=== PATIENT | male | born 1995 | race Caucasian/White ===

== ENCOUNTER 2019-10-01 16:38 | Emergency (ER) | payer SELFPAY ==
--- NOTE | 2019-10-01 17:17 | EDM.PDOC ---
ED HPI GENERAL MEDICAL PROBLEM - General Chief Complaint: ENT Problem Stated Complaint: EAR RINGING AND SOUND IS MUFFLED Time Seen by Provider: 10/01/19 16:55 Source of Information: Reports: Patient History Limitations: Reports: No Limitations - History of Present Illness INITIAL COMMENTS - FREE TEXT/NARRATIVE: This unfortunate 24-year-old male presents in respiratory a complaint of decreased hearing to right ear. Patient reports symptoms started 2 days ago and progressively worsened since no fever no chills no nausea no vomiting no shortness of breath. Left Ear Pain Score (Numeric/FACES): 4 - Related Data Allergies Allergy/AdvReac Type Severity Reaction Status Date / Time No Known Allergies Allergy Verified 10/01/19 17:01 Home Meds: Home Meds . [No Known Home Meds] 10/01/19 [History] Past Medical History - Past Health History Medical/Surgical History: Denies Medical/Surgical History Social & Family History - Tobacco Use Smoking Status *Q: Current Every Day Smoker Years of Tobacco use: 4 Packs/Tins Daily: 0.1 ED ROS ENT - Review of Systems Review Of Systems: See Below Constitutional: Denies: Fever, Chills HEENT: Reports: Hearing Loss. Denies: Ear Discharge ED EXAM, ENT - Physical Exam Exam: See Below Exam Limited By: No Limitations General Appearance: Alert, WD/WN, Mild Distress Ears: TM Obscured by Cerumen (Left ear) Nose: Normal Inspection, Normal Mucousa, No Blood Head: Atraumatic, Normocephalic Respiratory/Chest: No Respiratory Distress, Lungs Clear, Normal Breath Sounds, No Accessory Muscle Use, Chest Non-Tender Cardiovascular: Normal Peripheral Pulses GI/Abdominal: Normal Bowel Sounds, Soft, Non-Tender, No Organomegaly, No Distention, No Abnormal Bruit, No Mass Extremities: Normal Inspection, Normal Range of Motion, Non-Tender, No Pedal Edema, Normal Capillary Refill Skin: Warm, Dry, No Rash ED ENT PROCEDURES - Additional/Other Procedure(s) Other (Free Text) Procedure(s): Irrigation left ear, irrigated with warm water large amount of cerumen removed post evaluation TM normal, canal clear Course - Vital Signs Last Recorded V/S: Last Vital Signs Temp 98.7 F 10/01/19 16:57 Pulse 75 10/01/19 16:57 Resp 16 10/01/19 16:57 BP 126/70 10/01/19 16:57 Pulse Ox 96 10/01/19 16:57 Departure - Departure Time of Disposition: 17:17 Disposition: Home, Self-Care 01 Clinical Impression: Impacted cerumen of left ear - Discharge Information Referrals: PCP,None [Primary Care Provider] - Additional Instructions: Home, rest, return as needed Sepsis Event Note - Evaluation Sepsis Screening Result: No Definite Risk - Focused Exam Vital Signs: Vital Signs Temp Pulse Resp BP Pulse Ox 10/01/19 16:57 98.7 F 75 16 126/70 96 Date Exam was Performed: 10/01/19 Time Exam was Performed: 17:15
== END 2019-10-01 17:39 | disposition home or self-care (01) ==
LOC: JD.ED 16:38
DX: H61.22 Impacted cerumen, left ear (principal); F17.210 Nicotine dependence, cigarettes, uncomplicated
CPT/HCPCS: 69209; 99282; 99283

== ENCOUNTER 2020-03-19 19:51 | Emergency (ER) | payer MEDICAID ==
--- NOTE | 2020-03-19 20:30 | EDM.PDOC ---
ED HPI GENERAL MEDICAL PROBLEM - General Chief Complaint: Lower Extremity Injury/Pain Stated Complaint: ANKLE INJURY Time Seen by Provider: 03/19/20 20:04 Source of Information: Reports: Patient, Family () History Limitations: Reports: No Limitations - History of Present Illness INITIAL COMMENTS - FREE TEXT/NARRATIVE: Mr. Britton is a very pleasant 24-year-old man with no chronic medical problems and no past surgical history, who now presents to the ED stating that he has had right heel pain - he points to the sole of his heel -for the past 2 to 3 days, after jumping on a trampoline and running. No other known injury. He denies pain elsewhere to his foot. No prior similar symptoms. He states that he took some Tylenol and ibuprofen. The patient states that his pain MAY be worse when he first gets up in the morning, but his tells me that his pain is constant all day. Other than his heel pain, the patient denies recent fever, chills, sore throat, ear pain, nasal or sinus congestion, cough, dyspnea, chest pain, palpitations, nausea, vomiting, constipation, diarrhea, abdominal pain, urinary symptoms, recent weight gain or weight loss, recent bloody bowel movements or black bowel movements, recent joint aches, headaches, or rashes. The patient's PCP is Michelle Nowak NP. Right Foot Pain Score (Numeric/FACES): 8 - Related Data Allergies Allergy/AdvReac Type Severity Reaction Status Date / Time No Known Allergies Allergy Verified 03/19/20 20:03 Home Meds: Home Meds Acetaminophen [Tylenol] 650 mg PO ONCALL PRN 03/19/20 [History] Past Medical History - Past Health History Medical/Surgical History: Denies Medical/Surgical History Social & Family History - Tobacco Use Smoking Status *Q: Current Every Day Smoker Tobacco Use Within Last Twelve Months: Smokeless Tobacco (Occasionally chews tobacco) Years of Tobacco use: 4 Packs/Tins Daily: 0.3 - Alcohol Use Alcohol Use History: Yes Alcohol Use Frequency: Socially - Recreational Drug Use Recreational Drug Use: Yes Drug Use in Last 12 Months: No Recreational Drug Type: Reports: Marijuana/Hashish (last smoked around 2013) - Living Situation & Occupation Living situation: Reports: , with Spouse, with Family (Daughter) Occupation: Unemployed Review of Systems - Review of Systems Review Of Systems: Comprehensive ROS is negative, except as noted in HPI. ED EXAM, GENERAL - Physical Exam Exam: See Below Exam Limited By: No Limitations General Appearance: Alert, WD/WN, No Apparent Distress Extremities: Other (No visible abnormality to the right ankle or foot, such as swelling, erythema, ecchymosis, or abrasion. There is significant tenderness to palpation of the sole of the heel, but no pain is induced with compression of the calcaneus laterally and medially. No significant pain to the remainder of the sole of the foot. Neurovascular status of the right lower extremity is intact.) Course - Vital Signs Last Recorded V/S: Last Vital Signs Temp 36.5 C 03/19/20 20:03 Pulse 102 H 03/19/20 20:03 Resp 18 03/19/20 20:03 BP 101/61 03/19/20 20:03 Pulse Ox 98 03/19/20 20:03 - Orders/Labs/Meds Orders: Active Orders 24 hr Category Date Time Status Foot Comp Min 3V Rt [CR] Stat Exams 03/19/20 20:23 Taken - Re-Assessments/Exams Free Text/Narrative Re-Assessment/Exam: 03/19/20 20:24 As above, the patient has pain to the sole of his right heel, and on examination , there is point tenderness, with no significant tenderness elsewhere in the foot, and no notable abnormalities. His presentation is most concerning for plantar fasciitis, however, because he reports jumping on a trampoline and running, I have ordered x-rays of the right foot to rule out a fracture. 03/19/20 20:39 4-view radiographs of the right foot appear to be normal. No fractures or dislocations identified. Formal read per the Radiologist pending. 03/19/20 21:02 X-rays results and the presumptive diagnosis of plantar fasciitis discussed with the patient and his . I am recommending that he wear is soft and supportive shoe as he can find, and in the meantime he may take over-the- counter ibuprofen. I would like him to follow-up with the [facility] Assistant Dr. Gan, who, if he agrees with the diagnosis, can fit the patient for orthotics. Departure - Departure Time of Disposition: 21:04 Disposition: Home, Self-Care 01 Condition: Good Clinical Impression: Plantar fasciitis of right foot - Discharge Information *PRESCRIPTION DRUG MONITORING PROGRAM REVIEWED*: Not Applicable *COPY OF PRESCRIPTION DRUG MONITORING REPORT IN PATIENT [place]: Not Applicable Instructions: Plantar Fasciitis Referrals: Michelle Nowak NP [Primary Care Provider] - Juan Gan II, DPM [Physician] - Forms: ED Department Discharge Additional Instructions: You were seen in the emergency room for 2 to 3 days of right heel pain. Work-up in the ER included x-rays of your right foot, which returned normal. No broken bones or dislocations were found. Based on your history, physical exam, and ER x-rays, your heel pain is most likely due to plantar fasciitis. We recommend that you wear soft arch-supporting athletic shoes whenever walking. Avoid walking barefoot or in slippers, sandals, or flip-flops. Take [id number] ibuprofen, 3 tablets (600 mg) every 8 hours, with food, as needed for discomfort. Follow-up with the [facility] Assistant Dr. Juan Gan at the next available appointment. If any other problems, please do not hesitate to return to the ER. Sepsis Event Note - Evaluation Sepsis Screening Result: No Definite Risk - Focused Exam Vital Signs: Vital Signs Temp Pulse Resp BP Pulse Ox 03/19/20 20:03 36.5 C 102 H 18 101/61 98 Date Exam was Performed: 03/20/20 Time Exam was Performed: 00:00 - My Orders Last 24 Hours: My Active Orders 03/19/20 20:23 Foot Comp Min 3V Rt [CR] Stat - Assessment/Plan Last 24 Hours: My Active Orders 03/19/20 20:23 Foot Comp Min 3V Rt [CR] Stat
--- NOTE | 2020-03-20 08:04 | CR ---
Right foot: 4 views of the right foot were obtained. Joint spaces are preserved. No acute fracture, dislocation or other bony abnormality is appreciated. Impression: 1. No abnormality is identified on right foot exam. Diagnostic code #1 This report was dictated in MDT
== END 2020-03-19 21:13 | disposition home or self-care (01) ==
LOC: JD.ED 19:51
DX: M72.2 Plantar fascial fibromatosis (principal); F17.210 Nicotine dependence, cigarettes, uncomplicated
CPT/HCPCS: 73630-26-RT; 73630-RT; 99282; 99283-25

== ENCOUNTER 2021-12-27 14:02 | Emergency (ER) | payer MEDICAID ==
[2021-12-27] MEDS ORDERED: Sodium Chloride 0.9% 10 ML Syringe FLUSH PRN (14:32)
[2021-12-27] MEDS ORDERED: Dexamethasone 10 MG/ML SDV IVPUSH ONE ×2 (14:32→16:04)
[2021-12-27] MEDS ORDERED: Ketorolac 30 MG/ML SDV IVPUSH ONE (14:32)
[2021-12-27] MEDS ORDERED: Ondansetron 4 MG/2 ML SDV IVPUSH ONE (14:35)
[2021-12-27] MEDS ORDERED: Sodium Chloride 0.9% 1,000 ML IV ONE (14:43)
[2021-12-27 15:11] LABS: CORONAVIRUS COVID-19 NAA NEGATIVE (NEGATIVE)
[2021-12-27] MEDS ORDERED: Iopamidol 612 MG/ML 100 ML Bottle IVPUSH ONE (15:24)
[2021-12-27] MEDS ORDERED: HYDROmorphone 0.5 MG/0.5 ML Syringe IVPUSH ONE (15:52)
[2021-12-27] MEDS ORDERED: Clindamycin Phosphate in D5W 900 MG in Premix Bag 1 BAG IV ONE ×2 (16:04)
[2021-12-27] MEDS ORDERED: Clindamycin HCl 150 MG Cap PO ONE (16:33)
[2021-12-27] MEDS ORDERED: Acetaminophen/HYDROcodone 325-5 MG Tab PO ONE (16:34)
== END 2021-12-27 17:28 | disposition home or self-care (01) ==
LOC: JD.ED 14:02
DX: J03.90 Acute tonsillitis, unspecified (principal); B27.90 Infectious mononucleosis, unspecified without complication; R74.8 Abnormal levels of other serum enzymes; Z72.0 Tobacco use; Z20.822 Contact with and (suspected) exposure to COVID-19
CPT/HCPCS: 0241U; 36415; 70491; 71045; 80053; 85025; 86140; 86308; 87040; 87651; 96365; 96375; 96376; 99283; A9270; J1100; J1170; J1885; J2405; J3490; J7030; Q9967; 99285

== ENCOUNTER 2021-12-28 20:45 | Emergency (ER) | payer MEDICAID | END 2021-12-28 22:01 | disposition home or self-care (01) | LOC: JD.ED 20:45 | DX: R74.8 Abnormal levels of other serum enzymes (principal); Z72.0 Tobacco use | CPT/HCPCS: 99283 ==

== ENCOUNTER 2021-12-31 15:05 | Inpatient (IN) | payer MEDICAID ==
[2021-12-31] MEDS ORDERED: methylPREDNISolone Sodium Succinate 125 MG/2 ML SDV IVPUSH ONE (15:38)
[2021-12-31] MEDS ORDERED: cefTRIAXone 2 GM in Sodium Chloride 0.9% 100 ML IV ONE (15:38)
[2021-12-31] MEDS ORDERED: HYDROmorphone 0.5 MG/0.5 ML Syringe IVPUSH ONE (15:39)
[2021-12-31] MEDS ORDERED: Ketorolac 30 MG/ML SDV IVPUSH ONE (15:39)
[2021-12-31] MEDS ORDERED: Sodium Chloride 0.9% 1,000 ML IV SCH ×3 (15:45→21:41)
[2021-12-31] MEDS: Sodium Chloride 0.9% 10 ML Syringe FLUSH PRN ×3 (16:07→17:18)
[2021-12-31] MEDS ORDERED: Iopamidol 612 MG/ML 100 ML Bottle IVPUSH ONE (17:04)
[2021-12-31] MEDS ORDERED: Sodium Chloride 0.9% 10 ML Syringe FLUSH ONE (17:04)
[2021-12-31] MEDS ORDERED: Sodium Chloride 0.9% 100 ML IV SCH (17:15)
[2021-12-31 20:21] LABS: CORONAVIRUS COVID-19 NAA NEGATIVE (NEGATIVE)
[2021-12-31] MEDS ORDERED: Ibuprofen 600 MG Tab PO PRN (21:30)
[2021-12-31] MEDS ORDERED: Pantoprazole 40 MG Vial ONE (21:30)
[2021-12-31] MEDS ORDERED: cefTRIAXone 1 GM in Sodium Chloride 0.9% 100 ML IV SCH (21:30)
[2021-12-31] MEDS ORDERED: Acetaminophen/HYDROcodone 325-5 MG Tab PO PRN (21:39)
[2021-12-31] MEDS ORDERED: Dexamethasone 4 MG/ML 5 ML MDV IV ONE (21:40)
[2021-12-31] MEDS ORDERED: Pantoprazole 40 MG Vial IVPUSH ONE (22:14)
[2021-12-31] MEDS ORDERED: Pantoprazole 40 MG in Sodium Chloride 0.9% 100 ML IV ONE (22:15)
[2021-12-31] MEDS ORDERED: Acetaminophen 325 MG Tab PO PRN (22:16)
[2022-01-01] MEDS: Sodium Chloride 0.9% 1,000 ML IV SCH ×2 (01:31→08:38)
[2022-01-01] MEDS: Clindamycin HCl 150 MG Cap PO SCH ×2 (08:37→15:04)
[2022-01-01] MEDS ORDERED: Dexamethasone 4 MG/ML SDV IVPUSH ONE (09:00)
[2022-01-01] MEDS ORDERED: Enoxaparin 40 MG/0.4 ML Syringe SUBCUT SCH (09:00)
[2022-01-01] MEDS ORDERED: cefTRIAXone 1 GM in Sodium Chloride 0.9% 100 ML IV SCH (16:00)
== END 2022-01-01 17:20 | disposition home or self-care (01) | DRG 153 ==
LOC: JD.ED 15:05 → JD.MS 19:54 → OBSVTOIN 21:30
PROVIDERS: ADMIT Pediatrics; ATTEND Pediatrics
DX: J03.80 Acute tonsillitis due to other specified organisms (principal); R74.8 Abnormal levels of other serum enzymes; E86.0 Dehydration; B27.90 Infectious mononucleosis, unspecified without complication; J03.90 Acute tonsillitis, unspecified; F17.200 Nicotine dependence, unspecified, uncomplicated; Z56.0 Unemployment, unspecified; B27.99 Infectious mononucleosis, unspecified with other complication; R79.89 Other specified abnormal findings of blood chemistry; F17.210 Nicotine dependence, cigarettes, uncomplicated; Z79.899 Other long term (current) drug therapy; Z20.822 Contact with and (suspected) exposure to COVID-19
CPT/HCPCS: 0240U; 36415; 70491; 80053; 83605; 85007; 85025; 85027; 85652; 86140; 96365; 96375; 99285; 70490; 70490-26; A9270-GY; C9113; J0696; J1100; J1170; J1650; J1885; J2930; J3490; J7030; Q9967